=== PATIENT | female | born 1950 | race Caucasian/White ===

== ENCOUNTER → 2020-05-07 06:17 | Outpatient (CLI) | payer MEDICARE, OTHER, SELFPAY ==
--- NOTE | 2020-05-07 06:18 | CA_ITS ---
APPROVED REPORT EXAM: Comprehensive 2D, Doppler, and color-flow Echocardiogram Remote Inpatient Coder: Ruba Pennington RVT Ht: 5 ft 6 in Wt: 196lbs BSA: 1.98 BP: 142/78 mmHg Indications: abnekg,dizziness,copd,smoker,soa,fatigue,pvd,htn,hld 2D Dimensions LVOT 1.66 cm (M/F) 1.5-2.5 M-Mode Dimensions RVDd 3.09 cm (0.9-2.6) LA Diam 3.98 cm (1.9-4.0) LVDd 4.86 cm (3.5-5.7) Ao Diam 3.17 cm (2.0-3.7) LVDs 2.81 cm (3.5-5.7) IVSd 1.53 cm (0.6-1.1) PWd 0.92 cm (0.6-1.1) EF (Teich) 73.10% FS 42.20% EDV (Teich) 110.70 mL ESV (Teich) 29.80 mL LV Diastology E Decel Time 183.00 (160-240 msec) E/A Ratio 0.6 MED E' 5.00 (< 7 cm/sec) E'/MED E' Ratio 9.40 (>14) LAT E' 7.60 (<10 cm/sec) E/LAT E' Ratio 6.18 (>14) Mitral Valve MV E Max Carlos. 47.00 (40-130 cm/s) MV A Velocity 84.00 (40-130 cm/s) E/A Ratio 0.56 MV Decel. Time 183.00 (160-240 ms) MV PHT 54.00 ms Pulmonary Valve PV Peak Velocity 64.00 (50-150 cm/s) Left Ventricle Left atrium is mildly enlarged, left ventricle is normal size, mild concentric left ventricular hypertrophy, visually estimated ejection fraction 55% with no regional wall motion abnormality, grade 1 diastolic dysfunction seen without tissue Doppler evidence of raise left atrial pressure. Right Ventricle Right atrium and right ventricle are mildly enlarged with normal contractility. Aortic Valve Aortic valve is minimally thickened and fibrosed, there is no aortic stenosis or aortic insufficiency. Mitral Valve Mitral valve leaflets are minimally thickened, there is mild mitral regurgitation. Tricuspid Valve Tricuspid valve grossly normal, there is mild tricuspid regurgitation, tricuspid regurgitation jet velocity is inadequate for calculation of the right ventricular systolic pressure. Pulmonic Valve Pulmonic valve is poorly visualized. Great Vessels Aortic root is normal size. Pericardium No significant pericardial effusion noted. Conclusion 1. Biatrial enlargement, normal left ventricular size, mild concentric left ventricular hypertrophy, visually estimated ejection fraction 55% with no regional wall motion abnormality, grade 1 diastolic dysfunction seen without tissue Doppler evidence of raise left atrial pressure. 2. Mildly enlarged right ventricle with normal contractility. 3. Mild mitral and tricuspid regurgitation. 4. No significant pericardial effusion noted. Electronically signed by : Dwain Crespo, 05/07/2020 12:08:37
--- NOTE | 2020-05-07 06:18 | CA_ITS ---
APPROVED REPORT Exam: Pharmacologic Technologist: Rachelle Alonzo, Ht: 5 ft 6 in Wt: 196 lbs BSA: 1.98 m2 HR: 68 bpm BP: 129/69 mmHg Rhythm: SINUS RHYTHM Medical History Medical History: HTN, Hyperlipidemia Medications: Amlodipine,,,,, Levothyroxine,,,,, Asa,,,,, Losartan,,,,, Allopurinol,,,,, Vit D3,,,,, Plavix,,,,, NeBivolol,,,,, Cardiac Risk Factors: HTN, Hyperlipidemia, Smoking Stress Test Details Test: LEXISCAN HR Resting HR: 66 bpm Max Heart Rate (APMHR): 149 bpm Max HR Achieved: 80 bpm Target HR (85% APMHR): 126 bpm % of APMHR: 53 Recovery HR: 71 bpm BP Resting BP: 129.0/69.0 mmHg Max BP: 147.0/59.0 mmHg Recovery BP: 121.0/40.0 mmHg ECG Resting ECG: SINUS RHYTHM Clinical Exercise duration: 04:01 min Highest Stage Achieved: Stress ECG Conclusion LEXISCAN PORTION COMPLETED. PATTIENT DENIED ANY COMPLAINTS DURING PEAK INFUSION. NO CP. NO SOA. NO NAUSEA/VOMITING. NO ECTOPY NOTED. LESS THAN 1.5MM ST DEPRESSION. IMAGES TO FOLLOW Test Summary RECOVERY 03:00 . . 70 . 121/ 40 . . REST 04:53 . . 66 . 129/ 69 . . Stage 1 . . . . . . . Myoview Injected Stage 1 01:00 . . 76 . . . . Stage 2 01:00 . . 77 . 124/ 64 . . Stage 3 01:00 . . 76 . 147/ 59 . . Stage 4 01:00 . . 74 . 131/ 66 . . Stage 4 01:01 . . 74 . 131/ 66 . Stop exercise at 04:01 RECOVERY 01:00 . . 72 . . . . RECOVERY 02:00 . . 70 . 121/ 40 . . RECOVERY 03:00 . . 70 . 121/ 40 . . RECOVERY 04:00 . . 70 . 138/ 86 . . RECOVERY 04:13 . . 70 . 138/ 86 . . Electronically signed by : Dwain Crespo, 05/07/2020 12:09:06
--- NOTE | 2020-05-07 06:18 | NM_ITS ---
APPROVED REPORT Exam: Nuclear Stress Test Indication: CAD, 4 STENTS, HTN, TOB USE, SOB, SYNCOPE Patient Location: Outpatient Stress Tech: Brittanie Bonillankson NM Tech:YOSEPH Carlson RT (R)(N)(M) Ht: 5 ft 8 in Wt: 198 lbs Bra Size: C HR: 68 bpm BP: 129/69 mmHg BSA: 2.03 m2 BMI: 30.1 History: CAD, 4 STENTS, HTN, TOB USE, SOB, SYNCOPE Procedure: Patient received a 0.4 mg of intravenous Lexiscan, resting heart rate 68 bpm, resting blood pressure 129/69 mmHg, with Lexiscan maximum heart rate achived was 76 bpm which is Less than 85 % of the maximum predicted heart rate and blood pressure was 147/59 mmHg. Electrocardiogram Resting electrocardiogram showed sinus rhythm, with Lexiscan there is less than 1.[address] segment depression noted from the baseline EKG. The EKG portion of the Lexiscan is nondiagnostic. Cardiac Stress and Resting SPECT Images: Cardiac Stress and Resting SPECT images were obtained using technetium 99m Myoview 31.7 mCi stress and 10.29 mCi at rest. Gated SPECT with analysis of segmental wall motion and calculation of the ejection fraction also done. Prone imaging was also obtained. Cardiac stress and resting SPECT images show uniform myocardial activity without segmental perfusion abnormality, computer derived ejection fraction is 58% with no regional wall motion abnormality, right ventricle is mildly enlarged with normal contractility. Conclusion: 1. The EKG portion of the Lexiscan is nondiagnostic. 2. No scintigraphic evidence of reversible ischemia seen, computer derived ejection fraction 50% with no regional wall motion abnormality, right ventricle is mildly enlarged with normal contractility. Electronically signed by : Dwain Crespo, 05/07/2020 12:13:00
== END ==
PROVIDERS: PCP Family Medicine; Visit Provider Nurse Practitioner Family
DX: E78.5 Hyperlipidemia, unspecified (principal); I11.9 Hypertensive heart disease without heart failure; I25.10 Atherosclerotic heart disease of native coronary artery without angina pectoris; I73.9 Peripheral vascular disease, unspecified; J44.9 Chronic obstructive pulmonary disease, unspecified; R06.02 Shortness of breath; R42 Dizziness and giddiness; Z72.0 Tobacco use; R94.31 Abnormal electrocardiogram [ECG] [EKG]
CPT/HCPCS: 78452; 93017; 93306; A9502; J2785